=== PATIENT | male | born 1990 | race Two or more races ===

== ENCOUNTER 2019-01-17 14:21 | Outpatient (CLI) | payer OTHER ==
--- NOTE | 2019-01-18 10:44 | Diagnostic Imaging Report ---
Indication: Abdominal pain Technique: Continuous helical transaxial imaging of the abdomen and pelvis was obtained from the lung bases to the pubic symphysis. No intravenous contrast was administered. Coronal 2-D reformats were also obtained. Automatic Exposure Control was utilized. Total Dose length Product (DLP): 493.[address] Dose Index Volume (CTDIvol): 10.68 mGy Comparison: none Findings: The lung bases are clear. Tiny punctate nonobstructive stone in the lower pole of the left kidney demonstrated. There is a proximal left ureteral stone as well measuring about 5 mm associated with mild left hydroureteronephrosis. Urinary bladder is unremarkable in appearance. The right kidney is unremarkable. Normal appendix noted. Bowel gas pattern is nonobstructive. There is no free fluid. IMPRESSION: 5 mm left proximal ureteral stone at the UPJ with associated mild left hydroureteronephrosis. Additional tiny 1 mm lower pole nonobstructive calyceal stone on the left kidney also noted. The CT scanner at [facility] is accredited by the [employer] and the scans are performed using dose optimization techniques as appropriate to a performed exam including Automatic Exposure control.
== END 2019-01-17 16:21 | disposition home or self-care (01) ==
LOC: CAT 14:21
DX: R10.9 Unspecified abdominal pain (principal)
CPT/HCPCS: 74176